=== PATIENT | female | born 1995 | race Two or more races ===

== ENCOUNTER 2025-03-24 01:22 | Emergency (ER) | payer MEDICAID, SELFPAY ==
[2025-03-24 01:29] VITALS: BMI 29.5
[2025-03-24 01:41] VITALS: BP 119/68; PULSE 102; RESP 18; TEMP 37.2; O2SAT 95
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
== END 2025-03-24 03:55 ==
PROVIDERS: Emergency Provider Emergency Medicine
DX: S80.12XA Contusion of left lower leg, initial encounter (principal); V43.52XA Car driver injured in collision with other type car in traffic accident, initial encounter
CPT/HCPCS: 73080; 73590; 99283